=== PATIENT | male | born 1940 | race African-American/Black ===

== ENCOUNTER 2017-12-07 01:25 | Inpatient (IN) | payer MEDICARE, MEDICAID ==
[~2017-12-07] VITALS: Ht 162.6 cm; Wt 85.7 kg
[~2017-12-07 01:25] MED LIST: AMLO10TA80 PO; DIGO250T81 PO; DONE5TAB33 PO; ISOS60TA4 PO; MEMA1CAP PO; TAMS0.4C31 PO
[2017-12-07] MEDS ORDERED: METHYLPREDNISOLONE SOD SUCC 125 MG/2 ML VIAL IV STA (01:32)
[2017-12-07] MEDS ORDERED: IPRATROPIUM BROMIDE (0.02%) 0.5MG/2.5ML NEB HHN STA (01:32)
[2017-12-07] MEDS ORDERED: ALBUTEROL (0.083%) 2.5MG/3ML NEB HHN STA (01:32)
[2017-12-07] MEDS ORDERED: FURO40TA5 PO (01:38)
[2017-12-07] MEDS ORDERED: SACU1TAB7 PO (01:39)
[2017-12-07 02:26] LABS: BASOPHILS % 0.1 % (0.0-2.0); EOSINOPHILS % 0.2 % (0.0-5.0); HEMATOCRIT. 44.8 % (42.0-52.0); HEMOGLOBIN. 15.2 g/dL (14.0-18.0); LYMPHOCYTES % 8.7 % (20.0-50.0); MEAN CORPUSCULAR HEMOGLOBIN 30.2 pg (28.0-32.0); MEAN PLATELET VOLUME 8.9 fl (7.4-10.4); MONOCYTES % 7.5 % (2.0-8.0); NEUTROPHILS % 83.5 % (40.0-76.0); PLATELET 145 x1000/uL (130-400); RED BLOOD CELL COUNT 5.04 mill/uL (4.7-6.1); RED CELL DISTRIBUTION WIDTH 14.2 % (11.6-14.6)
[2017-12-07 02:41] LABS: INR 1.1; PROTHROMBIN TIME 11.7 sec (9.4-11.6)
[2017-12-07 02:43] LABS: CHLORIDE 104 mEq/L (98-107)
[2017-12-07] MEDS ORDERED: FUROSEMIDE 100MG/10ML VIAL IVP SCH (03:15)
[2017-12-07] MEDS ORDERED: ASPIRIN 81MG TABLET PO SCH (03:15)
[2017-12-07 03:45] LABS: CLARITY URINE CLOUDY (CLEAR); COLOR URINE YELLOW (YELLOW); KETONES URINE NEGATIVE (NEGATIVE); LEUKOCYTE ESTERASE URINE NEGATIVE (NEGATIVE); NITRITE URINE NEGATIVE (NEGATIVE); OCCULT BLOOD URINE NEGATIVE (NEGATIVE); PH URINE 8.5 (4.5-8.0); PROTEIN URINE NEGATIVE (NEGATIVE); SPECIFIC GRAVITY URINE 1.018 (1.005-1.030)
[2017-12-07] MEDS ORDERED: ENOXAPARIN 40MG/0.4ML SYR SUBCUT SCH (10:30)
[2017-12-07] MEDS ORDERED: LORAZEPAM 0.5MG TABLET PO PRN (10:30)
[2017-12-07] MEDS ORDERED: IPRATROPIUM/ALBUTEROL 0.5-3(2.5)MG/3ML NEB INH PRN (10:30)
[2017-12-07] MEDS ORDERED: ACETAMINOPHEN 325MG TABLET PO PRN (10:30)
[2017-12-07] MEDS ORDERED: NITROGLYCERIN 0.4MG TABLET SL SL PRN (10:30)
[2017-12-07] MEDS ORDERED: GUAIFENESIN 200MG/10ML SUGAR FREE UDC PO PRN (10:30)
[2017-12-07] MEDS ORDERED: ZOLPIDEM TARTRATE 5MG TABLET PO PRN (10:30)
[2017-12-07] MEDS ORDERED: DIPHENHYDRAMINE 50MG/ML VIAL IV PRN (10:30)
[2017-12-07] MEDS ORDERED: GUAIFENESIN/DM 600MG/30MG ER TAB 12HR PO SCH (10:30)
[2017-12-07] MEDS ORDERED: MAGNESIUM/ALUMINUM HYDROXIDE/SIMETHICONE 30ML UDC PO PRN (10:30)
[2017-12-07] MEDS ORDERED: LEVOFLOXACIN 500MG PREMIX 100 ML IV SCH (10:30)
[2017-12-07] MEDS ORDERED: KETOROLAC 15MG/ML VIAL IV PRN (10:30)
[2017-12-07] MEDS ORDERED: DOCUSATE SODIUM 100MG CAPSULE PO PRN (10:30)
[2017-12-07] MEDS ORDERED: ONDANSETRON HCL 4MG/2ML VIAL IV PRN (10:30)
[2017-12-07] MEDS ORDERED: NA PHOS,M-B/NA PHOS,DI-BA ENEMA 118ML PR PRN (10:30)
[2017-12-07] MEDS ORDERED: CLONIDINE 0.1MG TABLET PO PRN (10:30)
[2017-12-07] MEDS ORDERED: LEVOFLOXACIN 500MG PREMIX 100 ML IV NR (11:00)
[2017-12-07] MEDS ORDERED: ENOXAPARIN 40MG/0.4ML SYR SUBCUT NR (11:30)
[2017-12-07] MEDS ORDERED: GUAIFENESIN/DM 600MG/30MG ER TAB 12HR PO NR (11:30)
[2017-12-07 22:40] VITALS: BP 115/56
[2017-12-07 23:19] LABS: CREATINE KINASE MB FRACTION 3.5 ng/mL (0.5-3.6)
[2017-12-08] MEDS ORDERED: MULT-1146 PO
[2017-12-08 00:23] VITALS: BP 115/68
[2017-12-08 04:00] VITALS: BP 117/76
[2017-12-08 07:54] VITALS: BP 105/72
[2017-12-08] MEDS: GUAIFENESIN/DM 600MG/30MG ER TAB 12HR PO SCH ×2 (10:59→20:56)
[2017-12-08] MEDS: ENOXAPARIN 40MG/0.4ML SYR SUBCUT SCH (10:59)
[2017-12-08] MEDS: FUROSEMIDE 40MG/4ML VIAL IVP SCH ×2 (11:00→20:55)
[2017-12-08] MEDS: ASPIRIN 325MG EC TABLET PO SCH (11:00)
[2017-12-08] MEDS: SPIRONOLACTONE 25MG TABLET PO SCH ×2 (11:00→20:56)
[2017-12-08] MEDS: FAMOTIDINE 20MG/2ML VIAL IV SCH ×2 (11:00→20:55)
[2017-12-08] MEDS: LEVOFLOXACIN 500MG PREMIX 100 ML IV SCH (13:58)
[2017-12-08 16:18] VITALS: BP 104/73
[2017-12-08 17:58] LABS: *AMPHETAMINES SCREEN URINE NEGATIVE (NEGATIVE); *BARBITURATES SCREEN URINE NEGATIVE (NEGATIVE); *BENZODIAZEPINES SCREEN URINE NEGATIVE (NEGATIVE); *COCAINE SCREEN URINE NEGATIVE (NEGATIVE); CANNABINOID URINE SCREEN NEGATIVE (NEGATIVE); METHADONE URINE SCREEN NEGATIVE (NEGATIVE); OPIATES URINE SCREEN PRESUMTIVE POSITIVE (NEGATIVE); PHENCYCLIDINE URINE SCREEN NEGATIVE (NEGATIVE)
[2017-12-08 20:00] VITALS: BP 111/60
[2017-12-09] MEDS: IPRATROPIUM/ALBUTEROL 0.5-3(2.5)MG/3ML NEB HHN SCH ×5 (00:59→20:34)
[2017-12-09] MEDS: BUDESONIDE 0.5MG/2ML NEB HHN SCH ×3 (01:07→20:33)
[2017-12-09 06:00] VITALS: BP 118/83
[2017-12-09 08:00] VITALS: BP 116/74
[2017-12-09] MEDS ORDERED: MEMANTINE HCL 10 MG PO SCH (09:15)
[2017-12-09] MEDS: SPIRONOLACTONE 25MG TABLET PO SCH ×2 (10:22→20:27)
[2017-12-09] MEDS: FAMOTIDINE 20MG/2ML VIAL IV SCH ×2 (10:22→20:20)
[2017-12-09] MEDS: FUROSEMIDE 40MG/4ML VIAL IVP SCH ×2 (10:22→20:20)
[2017-12-09] MEDS: ENOXAPARIN 40MG/0.4ML SYR SUBCUT SCH (10:23)
[2017-12-09] MEDS: GUAIFENESIN/DM 600MG/30MG ER TAB 12HR PO SCH ×2 (10:23→20:21)
[2017-12-09] MEDS: ASPIRIN 325MG EC TABLET PO SCH (10:24)
[2017-12-09 12:00] VITALS: BP 115/76
[2017-12-09] MEDS: LEVOFLOXACIN 500MG PREMIX 100 ML IV SCH (14:08)
[2017-12-09] MEDS ORDERED: MEMA10TA2 PO (14:59)
[2017-12-09 16:00] VITALS: BP 111/75
[2017-12-09] MEDS ORDERED: DIGOXIN 250MCG TABLET PO SCH (18:00)
[2017-12-09 20:00] VITALS: BP 105/74
[2017-12-10] VITALS: BP 138/79
[2017-12-10] MEDS: IPRATROPIUM/ALBUTEROL 0.5-3(2.5)MG/3ML NEB HHN SCH ×3 (00:57→08:13)
[2017-12-10 04:00] VITALS: BP 111/76
[2017-12-10 07:53] VITALS: BP 122/78
[2017-12-10] MEDS: BUDESONIDE 0.5MG/2ML NEB HHN SCH (08:13)
[2017-12-10] MEDS: FUROSEMIDE 40MG/4ML VIAL IVP SCH (08:59)
[2017-12-10] MEDS: ENOXAPARIN 40MG/0.4ML SYR SUBCUT SCH (08:59)
[2017-12-10] MEDS: ASPIRIN 325MG EC TABLET PO SCH (09:00)
[2017-12-10] MEDS: GUAIFENESIN/DM 600MG/30MG ER TAB 12HR PO SCH (09:00)
[2017-12-10] MEDS ORDERED: MEMANTINE HCL 10MG TABLET PO SCH (09:00)
[2017-12-10] MEDS: FAMOTIDINE 20MG/2ML VIAL IV SCH (09:00)
[2017-12-10] MEDS: SPIRONOLACTONE 25MG TABLET PO SCH (09:00)
[2017-12-10 11:21] VITALS: BP 122/78
== END 2017-12-10 13:20 | disposition home or self-care (01) | DRG 133 ==
LOC: ER 01:25 → 8WST 03:24 → EDBEDREQ 03:26 → EDBEDREQTM 03:26 → SUPCPDRO 10:05 → EDBEDREQ 11:28 → EDBEDREQSVC 11:48 → ENRESERV 21:07
PROVIDERS: ADMIT Internal Medicine; ATTEND Internal Medicine
PROC: 5A09357 Assistance with Respiratory Ventilation, Less than 24 Consecutive Hours, Continuous Positive Airway Pressure (ICD-10-PCS; principal; 2017-12-07)
PROC: 5A09357 Assistance with Respiratory Ventilation, Less than 24 Consecutive Hours, Continuous Positive Airway Pressure (ICD-10-PCS; 2017-12-09)
DX: J96.00 Acute respiratory failure, unspecified whether with hypoxia or hypercapnia (principal); I50.43 Acute on chronic combined systolic (congestive) and diastolic (congestive) heart failure; E44.1 Mild protein-calorie malnutrition; J44.1 Chronic obstructive pulmonary disease with (acute) exacerbation; I11.0 Hypertensive heart disease with heart failure; F03.90 Unspecified dementia, unspecified severity, without behavioral disturbance, psychotic disturbance, mood disturbance, and anxiety; Z96.659 Presence of unspecified artificial knee joint; Z60.2 Problems related to living alone; N40.0 Benign prostatic hyperplasia without lower urinary tract symptoms; Z90.49 Acquired absence of other specified parts of digestive tract; Z95.810 Presence of automatic (implantable) cardiac defibrillator; Z87.01 Personal history of pneumonia (recurrent); Z79.899 Other long term (current) drug therapy; Z68.32 Body mass index [BMI] 32.0-32.9, adult
CPT/HCPCS: 36415; 71045; 80053; 80061; 80162; 80305; 81003; 82550; 82553; 83036; 83605; 83880; 84484; 85025; 85610; 87040; 87086; 93306; 93970; 94640; 94660; 96365; 96375; 97162; 97166; 99291; J1200; J1650; J1940; J1956; J2930; J3490; J7050; J7611; J7620; J7626

== ENCOUNTER 2019-07-14 13:45 | Inpatient (IN) | payer MEDICARE, MEDICAID ==
[~2019-07-14] VITALS: Ht 167.6 cm; Wt 74.4 kg
[~2019-07-14 13:45] MED LIST changes: -DONE5TAB33 PO; +FURO40TA5 PO; +MEMA10TA2 PO; -MEMA1CAP PO; +MULT-1146 PO; +SACU1TAB7 PO; -TAMS0.4C31 PO
[2019-07-14] MEDS ORDERED: LEVOFLOXACIN 750MG PREMIX 150 ML IV ONE (15:15)
[2019-07-14] MEDS ORDERED: SODIUM CHLORIDE 0.9% 1000ML BAG (SEPSIS BOLUS) IV ONE (15:15)
[2019-07-14 15:42] LABS: BASOPHILS % 0.4 % (0.0-2.0); HEMATOCRIT. 45.6 % (42.0-52.0); LYMPHOCYTES % 7.2 % (20.0-50.0); MEAN CORPUSCULAR HEMOGLOBIN 31.2 pg (28.0-32.0); MEAN CORPUSCULAR VOLUME 94.6 fL (80.0-94.0); MEAN PLATELET VOLUME 9.2 fl (7.4-10.4); MONOCYTES % 5.2 % (2.0-8.0); NEUTROPHILS % 87.2 % (40.0-76.0); PLATELET 102 x1000/uL (130-400); RED BLOOD CELL COUNT 4.82 mill/uL (4.7-6.1)
[2019-07-14 15:49] LABS: CHLORIDE 107 mEq/L (98-107)
[2019-07-14 15:50] LABS: INR 1.1; PARTIAL THROMBOPLASTIN TIME 27.2 sec (23.4-31.0); PROTHROMBIN TIME 11.2 sec (9.6-11.0)
[2019-07-14 16:11] LABS: DIGOXIN 0.1 ng/mL (0.9-2.0)
[2019-07-14] MEDS ORDERED: FUROSEMIDE 40MG/4ML VIAL IV ONE (16:30)
[2019-07-14] MEDS ORDERED: ASPIRIN 81MG TABLET PO ONE (16:30)
[2019-07-14 18:00] LABS: CLARITY URINE CLEAR (CLEAR); COLOR URINE DARK YELLOW (YELLOW); KETONES URINE NEGATIVE (NEGATIVE); LEUKOCYTE ESTERASE URINE TRACE (NEGATIVE); NITRITE URINE NEGATIVE (NEGATIVE); OCCULT BLOOD URINE 3+ (NEGATIVE); PH URINE 5.5 (4.5-8.0); PROTEIN URINE 2+ (NEGATIVE); SPECIFIC GRAVITY URINE 1.027 (1.005-1.030)
[2019-07-14 18:58] VITALS: BP 124/79
[2019-07-14 20:00] VITALS: BP 121/77
[2019-07-15] VITALS: BP 103/63
[2019-07-15] MEDS ORDERED: VANCOMYCIN 1 G PREMIX 200 ML IV NR
[2019-07-15] MEDS: PIPERACILLIN/TAZOBACTAM 3.375 G in DEXT 5% WATER 100 ML IV SCH ×5 (00:16→22:39)
[2019-07-15] MEDS: SACUBITRIL/VALSARTAN 49MG/51MG TABLET PO SCH ×3 (00:32→21:14)
[2019-07-15 04:00] VITALS: BP 115/71
[2019-07-15] MEDS: VANCOMYCIN 750 MG PREMIX 150 ML IV SCH ×2 (06:23→16:56)
[2019-07-15] MEDS ORDERED: FUROSEMIDE 40MG TABLET PO SCH (07:15)
[2019-07-15 08:00] VITALS: BP 105/66
[2019-07-15] MEDS: ASPIRIN 325MG TABLET PO SCH (09:00)
[2019-07-15] MEDS: MEMANTINE HCL 10MG TABLET PO SCH (09:00)
[2019-07-15] MEDS: ENOXAPARIN 40MG/0.4ML SYR SUBCUT SCH (09:55)
[2019-07-15] MEDS: CARVEDILOL 3.125 MG TABLET PO SCH ×2 (09:56→21:00)
[2019-07-15 12:00] VITALS: BP 97/63
[2019-07-15] MEDS: BUMETANIDE 1MG/4ML VIAL IV SCH (13:26)
[2019-07-15] MEDS: ACETYLCYSTEINE 100MG/ML 10% VIAL 4ML INH SCH (14:16)
[2019-07-15 14:41] LABS: CHLORIDE 107 mEq/L (98-107)
[2019-07-15 14:59] LABS: T4 FREE 1.77 ng/dL (0.76-1.46)
[2019-07-15 15:01] LABS: FOLIC ACID (FOLATE) SERUM >20 ng/mL ng/mL (>5.38)
[2019-07-15 15:12] LABS: VITAMIN B12 SERUM 1328 pg/mL (211-911)
[2019-07-15 16:00] VITALS: BP 114/78
[2019-07-15] MEDS: AMLODIPINE 5MG TABLET PO SCH (16:57)
[2019-07-15] MEDS: POTASSIUM CHLORIDE 20MEQ TABLET SR PO SCH (16:57)
[2019-07-15 18:48] LABS: BASOPHILS % 0.1 % (0.0-2.0); HEMATOCRIT. 42.6 % (42.0-52.0); HEMOGLOBIN. 14.6 g/dL (14.0-18.0); LYMPHOCYTES % 12.2 % (20.0-50.0); MEAN CORPUSCULAR HEMOGLOBIN 32.2 pg (28.0-32.0); MEAN PLATELET VOLUME 9.3 fl (7.4-10.4); MONOCYTES % 7.8 % (2.0-8.0); NEUTROPHILS % 79.9 % (40.0-76.0); PLATELET 97 x1000/uL (130-400); RED BLOOD CELL COUNT 4.53 mill/uL (4.7-6.1); RED CELL DISTRIBUTION WIDTH 15.9 % (11.6-14.6)
[2019-07-15 20:00] VITALS: BP 106/68
[2019-07-15] MEDS: IPRATROPIUM/ALBUTEROL 0.5-3(2.5)MG/3ML NEB HHN SCH (21:05)
[2019-07-15] MEDS: LORAZEPAM 2MG/ML CPJ IV PRN (23:38)
[2019-07-16] VITALS (7 sets, daily range): BP systolic 98–119; BP diastolic 64–111
[2019-07-16] MEDS: IPRATROPIUM/ALBUTEROL 0.5-3(2.5)MG/3ML NEB HHN SCH ×4 (01:21→20:42)
[2019-07-16] MEDS: PIPERACILLIN/TAZOBACTAM 3.375 G in DEXT 5% WATER 100 ML IV SCH ×4 (05:27→22:43)
[2019-07-16 06:28] LABS: BASOPHILS % 0.1 % (0.0-2.0); HEMATOCRIT. 40.4 % (42.0-52.0); HEMOGLOBIN. 13.8 g/dL (14.0-18.0); LYMPHOCYTES % 13.1 % (20.0-50.0); MEAN CORPUSCULAR VOLUME 93.8 fL (80.0-94.0); MEAN PLATELET VOLUME 9.6 fl (7.4-10.4); MONOCYTES % 7.7 % (2.0-8.0); NEUTROPHILS % 79.1 % (40.0-76.0); PLATELET 93 x1000/uL (130-400); RED CELL DISTRIBUTION WIDTH 15.4 % (11.6-14.6)
[2019-07-16 06:33] LABS: CHLORIDE 105 mEq/L (98-107)
[2019-07-16] MEDS: VANCOMYCIN 750 MG PREMIX 150 ML IV SCH (06:42)
[2019-07-16] MEDS: ENOXAPARIN 40MG/0.4ML SYR SUBCUT SCH (09:00)
[2019-07-16] MEDS: CARVEDILOL 3.125 MG TABLET PO SCH ×2 (09:00→21:34)
[2019-07-16] MEDS: AMLODIPINE 5MG TABLET PO SCH (09:00)
[2019-07-16] MEDS: POTASSIUM CHLORIDE 20MEQ TABLET SR PO SCH (10:48)
[2019-07-16] MEDS: BUMETANIDE 1MG/4ML VIAL IV SCH ×3 (10:48→18:49)
[2019-07-16] MEDS: MEMANTINE HCL 10MG TABLET PO SCH (10:48)
[2019-07-16] MEDS: ASPIRIN 325MG TABLET PO SCH (10:55)
[2019-07-16] MEDS: SACUBITRIL/VALSARTAN 49MG/51MG TABLET PO SCH ×2 (10:55→22:42)
[2019-07-16] MEDS ORDERED: POTASSIUM CHLORIDE 20MEQ TABLET SR PO SCH (12:45)
[2019-07-16] MEDS ORDERED: KCL 20MEQ/100ML PREMIX 100 ML IV NR (13:15)
[2019-07-16] MEDS: VANCOMYCIN 1 G PREMIX 200 ML IV SCH (16:21)
[2019-07-16] MEDS: LORAZEPAM 2MG/ML CPJ IV PRN (21:34)
[2019-07-17] VITALS: BP 119/71
[2019-07-17] MEDS: SACUBITRIL/VALSARTAN 49MG/51MG TABLET PO SCH ×3 (00:45→22:34)
[2019-07-17] MEDS: ACETYLCYSTEINE 100MG/ML 10% VIAL 4ML INH SCH ×2 (01:57→16:11)
[2019-07-17] MEDS: IPRATROPIUM/ALBUTEROL 0.5-3(2.5)MG/3ML NEB HHN SCH ×5 (01:58→21:25)
[2019-07-17 04:00] VITALS: BP 151/79
[2019-07-17] MEDS: VANCOMYCIN 1 G PREMIX 200 ML IV SCH ×2 (04:13→18:56)
[2019-07-17] MEDS: PIPERACILLIN/TAZOBACTAM 3.375 G in DEXT 5% WATER 100 ML IV SCH (05:23)
[2019-07-17] MEDS: BUMETANIDE 1MG/4ML VIAL IV SCH ×2 (05:28→18:57)
[2019-07-17 07:30] LABS: BASOPHILS % 0.1 % (0.0-2.0); HEMATOCRIT. 39.6 % (42.0-52.0); HEMOGLOBIN. 13.5 g/dL (14.0-18.0); LYMPHOCYTES % 8.4 % (20.0-50.0); MEAN CORPUSCULAR HEMOGLOBIN 32.2 pg (28.0-32.0); MEAN CORPUSCULAR VOLUME 94.3 fL (80.0-94.0); MEAN PLATELET VOLUME 9.6 fl (7.4-10.4); MONOCYTES % 5.6 % (2.0-8.0); NEUTROPHILS % 85.9 % (40.0-76.0); PLATELET 89 x1000/uL (130-400); RED CELL DISTRIBUTION WIDTH 15.5 % (11.6-14.6)
[2019-07-17 08:26] LABS: CHLORIDE 107 mEq/L (98-107)
[2019-07-17] MEDS: AMLODIPINE 5MG TABLET PO SCH (09:00)
[2019-07-17] MEDS: CARVEDILOL 3.125 MG TABLET PO SCH ×2 (09:00→22:00)
[2019-07-17] MEDS: MEMANTINE HCL 10MG TABLET PO SCH (11:45)
[2019-07-17] MEDS: ASPIRIN 325MG TABLET PO SCH (11:45)
[2019-07-17] MEDS: ENOXAPARIN 40MG/0.4ML SYR SUBCUT SCH (11:46)
[2019-07-17] MEDS: POTASSIUM CHLORIDE 20MEQ TABLET SR PO SCH ×2 (13:49→17:00)
[2019-07-17] MEDS: CEFEPIME 1,000 MG in DEXTROSE 5% WATER 50 ML IV SCH (18:56)
[2019-07-17 20:00] VITALS: BP 111/85
[2019-07-17] MEDS: LORAZEPAM 2MG/ML CPJ IV PRN (20:25)
[2019-07-18] VITALS: BP 115/79
[2019-07-18] MEDS: CEFEPIME 1,000 MG in DEXTROSE 5% WATER 50 ML IV SCH ×3 (00:44→14:15)
[2019-07-18] MEDS: IPRATROPIUM/ALBUTEROL 0.5-3(2.5)MG/3ML NEB HHN SCH ×4 (01:57→20:46)
[2019-07-18 04:00] VITALS: BP 116/67
[2019-07-18] MEDS: VANCOMYCIN 1 G PREMIX 200 ML IV SCH ×2 (04:07→17:14)
[2019-07-18] MEDS: BUMETANIDE 1MG/4ML VIAL IV SCH ×2 (06:58→17:14)
[2019-07-18 07:08] LABS: CHLORIDE 106 mEq/L (98-107)
[2019-07-18 07:20] LABS: HEMATOCRIT. 39.7 % (42.0-52.0); HEMOGLOBIN. 13.7 g/dL (14.0-18.0); MEAN CORPUSCULAR HEMOGLOBIN 31.8 pg (28.0-32.0); MEAN CORPUSCULAR VOLUME 92.4 fL (80.0-94.0); MEAN PLATELET VOLUME 9.4 fl (7.4-10.4); PLATELET 111 x1000/uL (130-400); RED CELL DISTRIBUTION WIDTH 15.3 % (11.6-14.6)
[2019-07-18] MEDS: ACETYLCYSTEINE 100MG/ML 10% VIAL 4ML INH SCH ×2 (07:39→20:45)
[2019-07-18 08:00] VITALS: BP 114/76
[2019-07-18] MEDS: ENOXAPARIN 40MG/0.4ML SYR SUBCUT SCH ×2 (09:00→14:15)
[2019-07-18] MEDS: AMLODIPINE 5MG TABLET PO SCH (09:57)
[2019-07-18] MEDS: POTASSIUM CHLORIDE 20MEQ TABLET SR PO SCH ×2 (09:57→17:14)
[2019-07-18] MEDS: CARVEDILOL 3.125 MG TABLET PO SCH ×2 (09:57→21:11)
[2019-07-18] MEDS: MEMANTINE HCL 10MG TABLET PO SCH (09:57)
[2019-07-18] MEDS: LORAZEPAM 2MG/ML CPJ IV PRN (09:58)
[2019-07-18] MEDS: SACUBITRIL/VALSARTAN 49MG/51MG TABLET PO SCH ×2 (09:58→21:12)
[2019-07-18] MEDS ORDERED: BUMETANIDE 1MG/4ML VIAL IV NR (11:03)
[2019-07-18] MEDS: RISPERIDONE 0.5MG TABLET PO SCH (13:30)
[2019-07-18] MEDS ORDERED: LORAZEPAM 2MG/ML CPJ IV PRN (13:30)
[2019-07-18] MEDS: ASPIRIN 325MG TABLET PO SCH (14:15)
[2019-07-18] MEDS: METHYLPREDNISOLONE SOD SUCC 40 MG/ML VIAL IV SCH ×2 (14:16→21:11)
[2019-07-18 16:00] VITALS: BP 105/69
[2019-07-18 17:35] LABS: PLATELET ESTIMATE SLIGHTLY DECREASED
[2019-07-18 20:00] VITALS: BP 129/80
[2019-07-19] VITALS: BP 119/55
[2019-07-19] MEDS: CEFEPIME 1,000 MG in DEXTROSE 5% WATER 50 ML IV SCH ×2 (00:43→13:38)
[2019-07-19] MEDS: IPRATROPIUM/ALBUTEROL 0.5-3(2.5)MG/3ML NEB HHN SCH ×4 (02:53→21:17)
[2019-07-19 04:00] VITALS: BP 117/81
[2019-07-19] MEDS: VANCOMYCIN 1 G PREMIX 200 ML IV SCH ×2 (04:09→16:35)
[2019-07-19] MEDS: BUMETANIDE 1MG/4ML VIAL IV SCH ×2 (06:32→16:35)
[2019-07-19] MEDS: METHYLPREDNISOLONE SOD SUCC 40 MG/ML VIAL IV SCH ×3 (06:32→22:27)
[2019-07-19 07:34] LABS: HEMATOCRIT. 40.8 % (42.0-52.0); HEMOGLOBIN. 13.9 g/dL (14.0-18.0); MEAN CORPUSCULAR HEMOGLOBIN 31.7 pg (28.0-32.0); MEAN CORPUSCULAR VOLUME 93.1 fL (80.0-94.0); MEAN PLATELET VOLUME 9.5 fl (7.4-10.4); PLATELET 140 x1000/uL (130-400); RED BLOOD CELL COUNT 4.38 mill/uL (4.7-6.1); RED CELL DISTRIBUTION WIDTH 15.1 % (11.6-14.6)
[2019-07-19 07:50] LABS: CHLORIDE 105 mEq/L (98-107)
[2019-07-19 08:00] VITALS: BP 109/67
[2019-07-19] MEDS: ACETYLCYSTEINE 100MG/ML 10% VIAL 4ML INH SCH ×2 (08:47→14:13)
[2019-07-19] MEDS: CARVEDILOL 3.125 MG TABLET PO SCH ×2 (09:00→21:00)
[2019-07-19] MEDS: ASPIRIN 325MG TABLET PO SCH (09:00)
[2019-07-19] MEDS: AMLODIPINE 5MG TABLET PO SCH (09:00)
[2019-07-19] MEDS: RISPERIDONE 0.5MG TABLET PO SCH (09:15)
[2019-07-19] MEDS: POTASSIUM CHLORIDE 20MEQ TABLET SR PO SCH ×2 (09:15→16:35)
[2019-07-19] MEDS: MEMANTINE HCL 10MG TABLET PO SCH (09:15)
[2019-07-19] MEDS: SACUBITRIL/VALSARTAN 49MG/51MG TABLET PO SCH ×2 (09:16→22:25)
[2019-07-19] MEDS: ENOXAPARIN 40MG/0.4ML SYR SUBCUT SCH (09:16)
[2019-07-19 11:41] LABS: PLATELET ESTIMATE NORMAL
[2019-07-19 12:00] VITALS: BP 101/82
[2019-07-19 20:00] VITALS: BP 106/66
[2019-07-20] VITALS: BP 102/59
[2019-07-20] MEDS: CEFEPIME 1,000 MG in DEXTROSE 5% WATER 50 ML IV SCH ×2 (00:57→14:14)
[2019-07-20] MEDS: IPRATROPIUM/ALBUTEROL 0.5-3(2.5)MG/3ML NEB HHN SCH ×3 (01:45→13:48)
[2019-07-20] MEDS: ACETYLCYSTEINE 100MG/ML 10% VIAL 4ML INH SCH ×3 (01:45→13:47)
[2019-07-20 04:00] VITALS: BP 102/64
[2019-07-20] MEDS: VANCOMYCIN 1 G PREMIX 200 ML IV SCH ×2 (04:03→16:39)
[2019-07-20] MEDS: BUMETANIDE 1MG/4ML VIAL IV SCH ×2 (06:52→18:56)
[2019-07-20] MEDS: METHYLPREDNISOLONE SOD SUCC 40 MG/ML VIAL IV SCH ×3 (06:52→21:22)
[2019-07-20 07:21] LABS: HEMATOCRIT. 40.2 % (42.0-52.0); HEMOGLOBIN. 13.5 g/dL (14.0-18.0); MEAN CORPUSCULAR HEMOGLOBIN 30.9 pg (28.0-32.0); MEAN CORPUSCULAR VOLUME 92.4 fL (80.0-94.0); MEAN PLATELET VOLUME 9.3 fl (7.4-10.4); PLATELET 147 x1000/uL (130-400); RED BLOOD CELL COUNT 4.36 mill/uL (4.7-6.1); RED CELL DISTRIBUTION WIDTH 15.4 % (11.6-14.6)
[2019-07-20 07:27] LABS: CHLORIDE 104 mEq/L (98-107)
[2019-07-20 08:00] VITALS: BP 109/67
[2019-07-20] MEDS: CARVEDILOL 3.125 MG TABLET PO SCH ×2 (09:00→21:00)
[2019-07-20] MEDS: AMLODIPINE 5MG TABLET PO SCH (09:00)
[2019-07-20] MEDS: RISPERIDONE 0.5MG TABLET PO SCH (09:15)
[2019-07-20] MEDS: ASPIRIN 325MG TABLET PO SCH (09:15)
[2019-07-20] MEDS: SACUBITRIL/VALSARTAN 49MG/51MG TABLET PO SCH ×2 (09:15→21:23)
[2019-07-20] MEDS: MEMANTINE HCL 10MG TABLET PO SCH (09:15)
[2019-07-20] MEDS: ENOXAPARIN 40MG/0.4ML SYR SUBCUT SCH (09:16)
[2019-07-20] MEDS: POTASSIUM CHLORIDE 20MEQ TABLET SR PO SCH ×2 (09:16→18:56)
[2019-07-20 11:19] LABS: PLATELET ESTIMATE NORMAL
[2019-07-20 12:00] VITALS: BP 89/53
[2019-07-20 16:00] VITALS: BP 93/57
[2019-07-20 20:00] VITALS: BP_SYST 101; BP_SYST 102; BP_SYST 107; BP_DIAS 58; BP_DIAS 60; BP_DIAS 64
[2019-07-20] MEDS: IPRATROPIUM/ALBUTEROL 0.5-3(2.5)MG/3ML NEB HHN PRN (21:05)
[2019-07-20] MEDS ORDERED: LORAZEPAM 2MG/ML CPJ IV PRN (21:45)
[2019-07-20] MEDS ORDERED: HALOPERIDOL LACTATE 5MG/ML VIAL IM PRN (21:45)
[2019-07-21] VITALS: BP 98/53
[2019-07-21] MEDS: ACETYLCYSTEINE 100MG/ML 10% VIAL 4ML INH SCH ×2 (01:00→10:48)
[2019-07-21] MEDS: IPRATROPIUM/ALBUTEROL 0.5-3(2.5)MG/3ML NEB HHN PRN (01:33)
[2019-07-21] MEDS: CEFEPIME 1,000 MG in DEXTROSE 5% WATER 50 ML IV SCH ×2 (01:41→15:28)
[2019-07-21] MEDS: VANCOMYCIN 1 G PREMIX 200 ML IV SCH ×2 (03:22→17:49)
[2019-07-21 04:00] VITALS: BP 101/57
[2019-07-21] MEDS: METHYLPREDNISOLONE SOD SUCC 40 MG/ML VIAL IV SCH ×3 (06:23→21:29)
[2019-07-21] MEDS: BUMETANIDE 1MG/4ML VIAL IV SCH ×2 (06:23→17:49)
[2019-07-21 06:36] LABS: HEMATOCRIT. 40.9 % (42.0-52.0); HEMOGLOBIN. 13.9 g/dL (14.0-18.0); MEAN CORPUSCULAR HEMOGLOBIN 31.7 pg (28.0-32.0); MEAN CORPUSCULAR VOLUME 93.2 fL (80.0-94.0); PLATELET 133 x1000/uL (130-400); RED BLOOD CELL COUNT 4.39 mill/uL (4.7-6.1); RED CELL DISTRIBUTION WIDTH 15.3 % (11.6-14.6)
[2019-07-21 06:50] LABS: CHLORIDE 104 mEq/L (98-107)
[2019-07-21 08:00] VITALS: BP 105/61
[2019-07-21] MEDS: AMLODIPINE 5MG TABLET PO SCH (08:30)
[2019-07-21] MEDS: CARVEDILOL 3.125 MG TABLET PO SCH (08:30)
[2019-07-21] MEDS: SACUBITRIL/VALSARTAN 49MG/51MG TABLET PO SCH ×2 (08:36→21:29)
[2019-07-21] MEDS: ENOXAPARIN 40MG/0.4ML SYR SUBCUT SCH (08:36)
[2019-07-21] MEDS: RISPERIDONE 0.5MG TABLET PO SCH ×3 (08:36→17:00)
[2019-07-21] MEDS: ASPIRIN 325MG TABLET PO SCH (08:36)
[2019-07-21] MEDS: POTASSIUM CHLORIDE 20MEQ TABLET SR PO SCH ×2 (08:37→17:49)
[2019-07-21] MEDS: IPRATROPIUM/ALBUTEROL 0.5-3(2.5)MG/3ML NEB HHN SCH ×3 (08:43→20:38)
[2019-07-21] MEDS: MEMANTINE HCL 10MG TABLET PO SCH (09:31)
[2019-07-21 10:09] LABS: PLATELET ESTIMATE NORMAL
[2019-07-21 12:00] VITALS: BP 113/62
[2019-07-21 16:00] VITALS: BP 106/54
[2019-07-21 20:00] VITALS: BP 106/64
[2019-07-22] VITALS: BP 103/63
[2019-07-22] MEDS: IPRATROPIUM/ALBUTEROL 0.5-3(2.5)MG/3ML NEB HHN SCH ×4 (01:00→20:10)
[2019-07-22] MEDS: CEFEPIME 1,000 MG in DEXTROSE 5% WATER 50 ML IV SCH ×2 (01:32→14:42)
[2019-07-22] MEDS: VANCOMYCIN 1 G PREMIX 200 ML IV SCH ×2 (03:53→18:21)
[2019-07-22 04:00] VITALS: BP 104/55
[2019-07-22] MEDS: METHYLPREDNISOLONE SOD SUCC 40 MG/ML VIAL IV SCH (06:00)
[2019-07-22] MEDS: BUMETANIDE 1MG/4ML VIAL IV SCH ×3 (06:00→18:20)
[2019-07-22 07:06] LABS: CHLORIDE 105 mEq/L (98-107)
[2019-07-22 07:07] LABS: HEMATOCRIT. 39.7 % (42.0-52.0); HEMOGLOBIN. 13.4 g/dL (14.0-18.0); MEAN CORPUSCULAR HEMOGLOBIN 31.6 pg (28.0-32.0); MEAN CORPUSCULAR VOLUME 93.6 fL (80.0-94.0); MEAN PLATELET VOLUME 8.9 fl (7.4-10.4); PLATELET 135 x1000/uL (130-400); RED BLOOD CELL COUNT 4.24 mill/uL (4.7-6.1); RED CELL DISTRIBUTION WIDTH 15.1 % (11.6-14.6)
[2019-07-22 08:00] VITALS: BP 121/67
[2019-07-22 09:08] LABS: PLATELET ESTIMATE NORMAL
[2019-07-22] MEDS: AMLODIPINE 5MG TABLET PO SCH (09:47)
[2019-07-22] MEDS: MEMANTINE HCL 10MG TABLET PO SCH (09:48)
[2019-07-22] MEDS: ENOXAPARIN 40MG/0.4ML SYR SUBCUT SCH (09:48)
[2019-07-22] MEDS: ASPIRIN 325MG TABLET PO SCH (09:48)
[2019-07-22] MEDS: RISPERIDONE 0.5MG TABLET PO SCH ×2 (09:49→18:21)
[2019-07-22] MEDS: POTASSIUM CHLORIDE 20MEQ TABLET SR PO SCH ×3 (09:58→18:21)
[2019-07-22] MEDS: ACETYLCYSTEINE 100MG/ML 10% VIAL 4ML INH SCH (10:48)
[2019-07-22] MEDS: SACUBITRIL/VALSARTAN 49MG/51MG TABLET PO SCH ×2 (11:26→21:00)
[2019-07-22] MEDS ORDERED: BUMETANIDE 1MG/4ML VIAL IV SCH (11:45)
[2019-07-22 12:00] VITALS: BP 107/68
[2019-07-22 16:00] VITALS: BP_SYST 107; BP_SYST 109; BP_DIAS 50; BP_DIAS 68
[2019-07-22 20:00] VITALS: BP 89/71
[2019-07-23] VITALS: BP 107/63
[2019-07-23] MEDS: IPRATROPIUM/ALBUTEROL 0.5-3(2.5)MG/3ML NEB HHN SCH ×6 (00:02→21:28)
[2019-07-23] MEDS: ACETYLCYSTEINE 100MG/ML 10% VIAL 4ML INH SCH ×3 (00:03→17:04)
[2019-07-23] MEDS: CEFEPIME 1,000 MG in DEXTROSE 5% WATER 50 ML IV SCH ×2 (01:26→15:58)
[2019-07-23 04:20] VITALS: BP 106/62
[2019-07-23] MEDS: VANCOMYCIN 1 G PREMIX 200 ML IV SCH ×2 (04:46→18:14)
[2019-07-23 07:05] LABS: CHLORIDE 107 mEq/L (98-107)
[2019-07-23 07:08] LABS: HEMATOCRIT. 41.1 % (42.0-52.0); HEMOGLOBIN. 14.1 g/dL (14.0-18.0); MEAN CORPUSCULAR HEMOGLOBIN 31.8 pg (28.0-32.0); MEAN CORPUSCULAR VOLUME 92.8 fL (80.0-94.0); MEAN PLATELET VOLUME 9.1 fl (7.4-10.4); PLATELET 121 x1000/uL (130-400); RED BLOOD CELL COUNT 4.43 mill/uL (4.7-6.1); RED CELL DISTRIBUTION WIDTH 14.9 % (11.6-14.6)
[2019-07-23 08:25] LABS: PLATELET ESTIMATE SLIGHTLY DECREASED
[2019-07-23] MEDS: POTASSIUM CHLORIDE 20MEQ TABLET SR PO SCH ×3 (09:00→17:00)
[2019-07-23] MEDS: RISPERIDONE 0.5MG TABLET PO SCH ×2 (09:46→18:14)
[2019-07-23] MEDS: BUMETANIDE 1MG/4ML VIAL IV SCH ×3 (09:46→18:14)
[2019-07-23] MEDS: MEMANTINE HCL 10MG TABLET PO SCH (09:46)
[2019-07-23] MEDS: ASPIRIN 325MG TABLET PO SCH (09:46)
[2019-07-23] MEDS: METHYLPREDNISOLONE SOD SUCC 40 MG/ML VIAL IV SCH (09:46)
[2019-07-23] MEDS: AMLODIPINE 5MG TABLET PO SCH (09:47)
[2019-07-23] MEDS: ENOXAPARIN 40MG/0.4ML SYR SUBCUT SCH (09:48)
[2019-07-23] MEDS: SACUBITRIL/VALSARTAN 49MG/51MG TABLET PO SCH ×2 (09:48→20:29)
[2019-07-23 12:00] VITALS: BP 114/66
[2019-07-23 16:00] VITALS: BP 106/60
[2019-07-23 20:00] VITALS: BP 123/72
[2019-07-24] VITALS (10 sets, daily range): BP systolic 91–127; BP diastolic 55–73
[2019-07-24] MEDS: ACETYLCYSTEINE 100MG/ML 10% VIAL 4ML INH SCH ×4 (01:17→23:36)
[2019-07-24] MEDS: IPRATROPIUM/ALBUTEROL 0.5-3(2.5)MG/3ML NEB HHN SCH ×7 (01:18→23:36)
[2019-07-24] MEDS: CEFEPIME 1,000 MG in DEXTROSE 5% WATER 50 ML IV SCH (02:04)
[2019-07-24] MEDS: VANCOMYCIN 1 G PREMIX 200 ML IV SCH (06:19)
[2019-07-24] MEDS: AMLODIPINE 5MG TABLET PO SCH (09:00)
[2019-07-24] MEDS: BUMETANIDE 1MG/4ML VIAL IV SCH ×2 (10:23→13:54)
[2019-07-24] MEDS: ASPIRIN 325MG TABLET PO SCH (10:24)
[2019-07-24] MEDS: METHYLPREDNISOLONE SOD SUCC 40 MG/ML VIAL IV SCH (10:24)
[2019-07-24] MEDS: RISPERIDONE 0.5MG TABLET PO SCH (10:24)
[2019-07-24] MEDS: SACUBITRIL/VALSARTAN 49MG/51MG TABLET PO SCH ×2 (10:25→21:30)
[2019-07-24] MEDS: MEMANTINE HCL 10MG TABLET PO SCH (10:25)
[2019-07-24] MEDS: ENOXAPARIN 40MG/0.4ML SYR SUBCUT SCH (10:26)
[2019-07-24] MEDS: POTASSIUM CHLORIDE 20MEQ TABLET SR PO SCH ×3 (10:27→17:51)
[2019-07-24 11:14] LABS: HEMATOCRIT. 43.3 % (42.0-52.0); HEMOGLOBIN. 14.6 g/dL (14.0-18.0); MEAN CORPUSCULAR HEMOGLOBIN 31.2 pg (28.0-32.0); MEAN CORPUSCULAR VOLUME 92.9 fL (80.0-94.0); MEAN PLATELET VOLUME 8.9 fl (7.4-10.4); PLATELET 115 x1000/uL (130-400); RED BLOOD CELL COUNT 4.66 mill/uL (4.7-6.1); RED CELL DISTRIBUTION WIDTH 15.2 % (11.6-14.6)
[2019-07-24 11:20] LABS: CHLORIDE 108 mEq/L (98-107)
[2019-07-24] MEDS ORDERED: SODIUM CHLORIDE 10% FOR INH 15ML VIAL NEB INH SCH (11:30)
[2019-07-24 13:34] LABS: PLATELET ESTIMATE DECREASED
[2019-07-24] MEDS: MEROPENEM 500 MG in SODIUM CHLORIDE 0.9% 50 ML IV SCH ×2 (15:42→21:30)
[2019-07-24] MEDS ORDERED: BUMETANIDE 1MG/4ML VIAL IV SCH (17:15)
[2019-07-24] MEDS ORDERED: RISPERIDONE 0.5MG TABLET PO SCH (21:00)
[2019-07-24] MEDS: NYSTATIN POWDER 15GM TOP SCH (21:31)
[2019-07-25] VITALS (12 sets, daily range): BP systolic 92–108; BP diastolic 52–64
[2019-07-25] MEDS: IPRATROPIUM/ALBUTEROL 0.5-3(2.5)MG/3ML NEB HHN SCH ×5 (04:34→21:07)
[2019-07-25] MEDS: MEROPENEM 500 MG in SODIUM CHLORIDE 0.9% 50 ML IV SCH ×3 (05:29→21:13)
[2019-07-25 07:04] LABS: HEMATOCRIT. 40.9 % (42.0-52.0); HEMOGLOBIN. 13.7 g/dL (14.0-18.0); MEAN CORPUSCULAR HEMOGLOBIN 31.3 pg (28.0-32.0); MEAN CORPUSCULAR VOLUME 93.1 fL (80.0-94.0); MEAN PLATELET VOLUME 9.3 fl (7.4-10.4); PLATELET 112 x1000/uL (130-400); RED BLOOD CELL COUNT 4.39 mill/uL (4.7-6.1); RED CELL DISTRIBUTION WIDTH 15.1 % (11.6-14.6)
[2019-07-25 07:09] LABS: CHLORIDE 110 mEq/L (98-107)
[2019-07-25] MEDS: METOLAZONE 2.5MG TABLET PO SCH (07:42)
[2019-07-25] MEDS: BUMETANIDE 2.5MG/10ML VIAL IV SCH ×2 (08:59→18:24)
[2019-07-25] MEDS: NYSTATIN POWDER 15GM TOP SCH ×2 (09:00→21:13)
[2019-07-25] MEDS: AMLODIPINE 5MG TABLET PO SCH (09:00)
[2019-07-25] MEDS: SACUBITRIL/VALSARTAN 49MG/51MG TABLET PO SCH ×2 (09:04→21:13)
[2019-07-25] MEDS: METHYLPREDNISOLONE SOD SUCC 40 MG/ML VIAL IV SCH (09:04)
[2019-07-25] MEDS: MEMANTINE HCL 10MG TABLET PO SCH (09:04)
[2019-07-25] MEDS: ASPIRIN 325MG TABLET PO SCH (09:04)
[2019-07-25] MEDS: POTASSIUM CHLORIDE 20MEQ TABLET SR PO SCH (09:04)
[2019-07-25] MEDS: ENOXAPARIN 40MG/0.4ML SYR SUBCUT SCH (09:06)
[2019-07-25 12:19] LABS: BG BASE EXCESS 5.8 mmol/L (-2.0-2.0); BG BILEVEL POS AIRWAY PRESSURE 15/5; BG CARBOXYHEMOGLOBIN 0.7 % (0.5-1.5); BG DEOXYHEMOGLOBIN 4.5 % (0.0-5.0); BG FRACTION INSPIRED OXYGEN 50; BG HCO3 ACT 29.7 mmol/L (22.0-26.0); BG METHEMOGLOBIN 0.2 % (0.0-1.5); BG OXYGEN SATURATION 95.5 % (92.0-98.5); BG OXYHEMOGLOBIN 94.6 % (94.0-97.0); BG PCO2 40.2 mmHg (35.0-45.0); BG PH 7.486 (7.350-7.450); BG PO2 74.3 mmHg (75.0-100.0); BG SAMPLE SITE RIGHT RADIAL; BG VENT MODE MASK - BIPAP; BG VENT RATE 16 set
[2019-07-25 14:12] LABS: PLATELET ESTIMATE DECREASED
[2019-07-25] MEDS ORDERED: DOBUTAMINE HCL IN DEXTROSE 5 % 250 ML IV SCH (15:00)
[2019-07-25] MEDS: DOBUTAMINE HCL 500 MG in DEXTROSE 5% WATER 250 ML IV SCH (15:35)
[2019-07-25] MEDS: ACETYLCYSTEINE 100MG/ML 10% VIAL 4ML INH SCH (16:37)
[2019-07-26] VITALS (13 sets, daily range): BP systolic 83–127; BP diastolic 49–65
[2019-07-26] MEDS: IPRATROPIUM/ALBUTEROL 0.5-3(2.5)MG/3ML NEB HHN SCH ×6 (00:48→21:05)
[2019-07-26] MEDS: ACETYLCYSTEINE 100MG/ML 10% VIAL 4ML INH SCH ×3 (00:48→14:00)
[2019-07-26] MEDS: MEROPENEM 500 MG in SODIUM CHLORIDE 0.9% 50 ML IV SCH ×3 (05:08→21:30)
[2019-07-26 06:44] LABS: HEMATOCRIT. 44.6 % (42.0-52.0); HEMOGLOBIN. 14.8 g/dL (14.0-18.0); MEAN CORPUSCULAR HEMOGLOBIN 31.2 pg (28.0-32.0); MEAN CORPUSCULAR VOLUME 93.9 fL (80.0-94.0); MEAN PLATELET VOLUME 9.5 fl (7.4-10.4); PLATELET 114 x1000/uL (130-400); RED BLOOD CELL COUNT 4.75 mill/uL (4.7-6.1)
[2019-07-26 09:21] LABS: PLATELET ESTIMATE DECREASED
[2019-07-26] MEDS: BUMETANIDE 2.5MG/10ML VIAL IV SCH (09:26)
[2019-07-26] MEDS: ENOXAPARIN 40MG/0.4ML SYR SUBCUT SCH (09:26)
[2019-07-26] MEDS: POTASSIUM CHLORIDE 20MEQ TABLET SR PO SCH (09:27)
[2019-07-26] MEDS: METOLAZONE 2.5MG TABLET PO SCH (09:27)
[2019-07-26] MEDS: ASPIRIN 325MG TABLET PO SCH (09:27)
[2019-07-26] MEDS: NYSTATIN POWDER 15GM TOP SCH (09:29)
[2019-07-26] MEDS: MEMANTINE HCL 10MG TABLET PO SCH (09:45)
[2019-07-26] MEDS: SACUBITRIL/VALSARTAN 49MG/51MG TABLET PO SCH (09:48)
[2019-07-26] MEDS ORDERED: POTASSIUM CHLORIDE INJ 40 MEQ in DEXT 5% WATER 250 ML IV SCH (10:00)
[2019-07-26] MEDS: DOBUTAMINE HCL 500 MG in DEXTROSE 5% WATER 250 ML IV SCH (15:00)
[2019-07-27] VITALS (12 sets, daily range): BP systolic 85–151; BP diastolic 44–73
[2019-07-27] MEDS: IPRATROPIUM/ALBUTEROL 0.5-3(2.5)MG/3ML NEB HHN SCH ×6 (00:24→20:29)
[2019-07-27] MEDS: NYSTATIN POWDER 15GM TOP SCH ×3 (00:40→20:50)
[2019-07-27] MEDS: MEROPENEM 500 MG in SODIUM CHLORIDE 0.9% 50 ML IV SCH ×3 (05:05→20:50)
[2019-07-27 08:00] LABS: HEMATOCRIT. 46.9 % (42.0-52.0); HEMOGLOBIN. 15.4 g/dL (14.0-18.0); MEAN CORPUSCULAR HEMOGLOBIN 31.1 pg (28.0-32.0); MEAN CORPUSCULAR VOLUME 94.6 fL (80.0-94.0); MEAN PLATELET VOLUME 9.7 fl (7.4-10.4); PLATELET 114 x1000/uL (130-400); RED BLOOD CELL COUNT 4.96 mill/uL (4.7-6.1); RED CELL DISTRIBUTION WIDTH 14.9 % (11.6-14.6)
[2019-07-27] MEDS: POTASSIUM CHLORIDE 20MEQ TABLET SR PO SCH (09:22)
[2019-07-27] MEDS: ASPIRIN 325MG TABLET PO SCH (09:22)
[2019-07-27] MEDS: MEMANTINE HCL 10MG TABLET PO SCH (09:22)
[2019-07-27] MEDS: ENOXAPARIN 40MG/0.4ML SYR SUBCUT SCH (09:23)
[2019-07-27] MEDS ORDERED: POTASSIUM CHLORIDE 20MEQ TABLET SR PO NR (12:30)
[2019-07-27] MEDS ORDERED: POTASSIUM CHLORIDE INJ 40 MEQ in DEXT 5% WATER 250 ML IV NR (14:00)
[2019-07-27] MEDS: DOBUTAMINE HCL 500 MG in DEXTROSE 5% WATER 250 ML IV SCH (14:21)
[2019-07-27 14:49] LABS: PLATELET ESTIMATE DECREASED
[2019-07-27] MEDS: ACETAMINOPHEN 650MG/20.3ML UDC PO PRN (16:51)
[2019-07-27] MEDS ORDERED: DEXT 5% IV ONE (20:00)
[2019-07-27] MEDS ORDERED: WATER IV ONE (20:00)
[2019-07-27] MEDS ORDERED: KCL IV ONE (20:00)
[2019-07-27] MEDS ORDERED: POTASSIUM CHLORIDE INJ 20 MEQ in DEXT 5% WATER 250 ML IV NR (20:00)
[2019-07-28] VITALS (13 sets, daily range): BP systolic 91–124; BP diastolic 52–69
[2019-07-28] MEDS: IPRATROPIUM/ALBUTEROL 0.5-3(2.5)MG/3ML NEB HHN SCH ×6 (00:48→20:21)
[2019-07-28] MEDS: MEROPENEM 500 MG in SODIUM CHLORIDE 0.9% 50 ML IV SCH ×3 (05:30→21:46)
[2019-07-28 08:07] LABS: PHOSPHORUS 3.3 mg/dL (2.5-4.9)
[2019-07-28 08:21] LABS: HEMATOCRIT. 48.2 % (42.0-52.0); HEMOGLOBIN. 15.8 g/dL (14.0-18.0); MEAN CORPUSCULAR HEMOGLOBIN 31.2 pg (28.0-32.0); MEAN CORPUSCULAR VOLUME 94.9 fL (80.0-94.0); MEAN PLATELET VOLUME 10.4 fl (7.4-10.4); PLATELET 123 x1000/uL (130-400); RED BLOOD CELL COUNT 5.08 mill/uL (4.7-6.1)
[2019-07-28] MEDS: ASPIRIN 325MG TABLET PO SCH (08:33)
[2019-07-28] MEDS: MEMANTINE HCL 10MG TABLET PO SCH (08:34)
[2019-07-28] MEDS: POTASSIUM CHLORIDE 20MEQ TABLET SR PO SCH (08:36)
[2019-07-28] MEDS: ENOXAPARIN 40MG/0.4ML SYR SUBCUT SCH (09:29)
[2019-07-28] MEDS: NYSTATIN POWDER 15GM TOP SCH ×2 (09:39→21:46)
[2019-07-28] MEDS: DEXTROSE 5% WATER 1,000 ML IV SCH ×2 (10:31→23:20)
[2019-07-28 13:11] LABS: PLATELET ESTIMATE SLIGHTLY DECREASED
[2019-07-29] VITALS (18 sets, daily range): BP systolic 87–130; BP diastolic 47–70
[2019-07-29] MEDS: IPRATROPIUM/ALBUTEROL 0.5-3(2.5)MG/3ML NEB HHN SCH ×6 (00:07→20:56)
[2019-07-29] MEDS: MEROPENEM 500 MG in SODIUM CHLORIDE 0.9% 50 ML IV SCH ×3 (05:26→21:43)
[2019-07-29 07:33] LABS: HEMATOCRIT. 47.7 % (42.0-52.0); HEMOGLOBIN. 15.8 g/dL (14.0-18.0); MEAN CORPUSCULAR HEMOGLOBIN 31.5 pg (28.0-32.0); MEAN CORPUSCULAR VOLUME 95.3 fL (80.0-94.0); MEAN PLATELET VOLUME 10.6 fl (7.4-10.4); PLATELET 109 x1000/uL (130-400); RED CELL DISTRIBUTION WIDTH 15.2 % (11.6-14.6)
[2019-07-29] MEDS: MEMANTINE HCL 10MG TABLET PO SCH (09:42)
[2019-07-29] MEDS: NYSTATIN POWDER 15GM TOP SCH ×2 (09:43→21:43)
[2019-07-29] MEDS: ENOXAPARIN 40MG/0.4ML SYR SUBCUT SCH (09:43)
[2019-07-29] MEDS: ASPIRIN 325MG TABLET PO SCH (09:44)
[2019-07-29] MEDS: DEXTROSE 5% WATER 1,000 ML IV SCH ×2 (12:07→21:55)
[2019-07-29] MEDS ORDERED: DOBUTAMINE HCL IN DEXTROSE 5 % 250 ML IV SCH (12:30)
[2019-07-29] MEDS: LACTULOSE 20G/30ML UDC PO SCH (15:35)
[2019-07-29 17:13] LABS: PLATELET ESTIMATE NORMAL
[2019-07-29] MEDS: DOCUSATE SODIUM 100MG CAPSULE PO SCH (17:30)
[2019-07-29] MEDS: FLUCONAZOLE 400MG/200ML BAG 200 ML IV SCH (17:30)
[2019-07-30] VITALS (48 sets, daily range): BP systolic 73–198; BP diastolic 31–133
[2019-07-30] MEDS: IPRATROPIUM/ALBUTEROL 0.5-3(2.5)MG/3ML NEB HHN SCH ×6 (00:54→21:26)
[2019-07-30] MEDS: MEROPENEM 500 MG in SODIUM CHLORIDE 0.9% 50 ML IV SCH ×3 (05:54→22:06)
[2019-07-30 06:04] LABS: HEMATOCRIT. 47.6 % (42.0-52.0); HEMOGLOBIN. 15.4 g/dL (14.0-18.0); MEAN CORPUSCULAR HEMOGLOBIN 30.7 pg (28.0-32.0); MEAN CORPUSCULAR VOLUME 95.2 fL (80.0-94.0); MEAN PLATELET VOLUME 10.6 fl (7.4-10.4); PLATELET 92 x1000/uL (130-400); RED CELL DISTRIBUTION WIDTH 14.9 % (11.6-14.6)
[2019-07-30 06:12] LABS: CHLORIDE 114 mEq/L (98-107)
[2019-07-30 06:17] LABS: PHOSPHORUS 3.1 mg/dL (2.5-4.9)
[2019-07-30] MEDS: LACTULOSE 20G/30ML UDC PO SCH (09:55)
[2019-07-30] MEDS: DOCUSATE SODIUM 100MG CAPSULE PO SCH ×2 (09:55→17:00)
[2019-07-30] MEDS: MEMANTINE HCL 10MG TABLET PO SCH (09:56)
[2019-07-30] MEDS: ENOXAPARIN 40MG/0.4ML SYR SUBCUT SCH (09:56)
[2019-07-30] MEDS: ASPIRIN 325MG TABLET PO SCH (09:56)
[2019-07-30] MEDS: NYSTATIN POWDER 15GM TOP SCH ×2 (09:58→22:06)
[2019-07-30] MEDS ORDERED: WATER IV SCH (13:00)
[2019-07-30] MEDS ORDERED: DEXTROSE 5% IV SCH (13:00)
[2019-07-30] MEDS ORDERED: POTASSIUM CHLORIDE IV SCH (13:00)
[2019-07-30] MEDS ORDERED: DOPAMINE 800MG PREMIX (DOUBLE) 250 ML IV SCH (13:15)
[2019-07-30] MEDS ORDERED: SODIUM CHLORIDE 0.9% 250 ML IV ONE (13:15)
[2019-07-30] MEDS ORDERED: DOPAMINE 400MG/250ML PREMIX 250 ML IV PRN (13:15)
[2019-07-30] MEDS: DEXT 5% WATER + KCL 20MEQ/L 1,000 ML IV SCH (14:29)
[2019-07-30] MEDS: DOPAMINE 400MG/250ML PREMIX 250 ML IV SCH (14:33)
[2019-07-30 16:23] LABS: PLATELET ESTIMATE DECREASED
[2019-07-30] MEDS: FLUCONAZOLE 400MG/200ML BAG 200 ML IV SCH (22:06)
[2019-07-31] VITALS (140 sets, daily range): BP systolic 64–153; BP diastolic 23–94
[2019-07-31] MEDS: IPRATROPIUM/ALBUTEROL 0.5-3(2.5)MG/3ML NEB HHN SCH ×7 (00:27→23:53)
[2019-07-31] MEDS: ACETYLCYSTEINE 100MG/ML 10% VIAL 4ML INH SCH ×4 (00:27→23:52)
[2019-07-31] MEDS: DOPAMINE 400MG/250ML PREMIX 250 ML IV SCH ×3 (01:52→21:46)
[2019-07-31 05:21] LABS: HEMATOCRIT. 48.5 % (42.0-52.0); HEMOGLOBIN. 15.8 g/dL (14.0-18.0); MEAN CORPUSCULAR VOLUME 95.5 fL (80.0-94.0); MEAN PLATELET VOLUME 11.1 fl (7.4-10.4); PLATELET 98 x1000/uL (130-400); RED BLOOD CELL COUNT 5.08 mill/uL (4.7-6.1); RED CELL DISTRIBUTION WIDTH 14.7 % (11.6-14.6)
[2019-07-31] MEDS: MEROPENEM 500 MG in SODIUM CHLORIDE 0.9% 50 ML IV SCH ×3 (06:20→21:05)
[2019-07-31] MEDS: ASPIRIN 325MG TABLET PO SCH (08:32)
[2019-07-31] MEDS: NYSTATIN POWDER 15GM TOP SCH ×2 (08:33→20:38)
[2019-07-31] MEDS: DOCUSATE SODIUM 250MG CAPSULE PO SCH ×2 (08:33→17:00)
[2019-07-31] MEDS: LACTULOSE 20G/30ML UDC PO SCH (08:33)
[2019-07-31] MEDS: MEMANTINE HCL 10MG TABLET PO SCH (08:33)
[2019-07-31 08:39] LABS: NUCLEATED RED BLOOD CELLS 1 /100 WBC
[2019-07-31 08:40] LABS: PLATELET ESTIMATE DECREASED
[2019-07-31] MEDS ORDERED: LIDOCAINE HCL 1% 20ML VIAL (Pyxis) INJ ONE (09:12)
[2019-07-31 09:46] LABS: BG BASE EXCESS 3.7 mmol/L (-2.0-2.0); BG BILEVEL POS AIRWAY PRESSURE 15/5; BG CARBOXYHEMOGLOBIN 0.1 % (0.5-1.5); BG DEOXYHEMOGLOBIN 2.2 % (0.0-5.0); BG FRACTION INSPIRED OXYGEN 40; BG HCO3 ACT 28.1 mmol/L (22.0-26.0); BG METHEMOGLOBIN 0.3 % (0.0-1.5); BG OXYGEN SATURATION 97.8 % (92.0-98.5); BG OXYHEMOGLOBIN 97.4 % (94.0-97.0); BG PCO2 41.8 mmHg (35.0-45.0); BG PH 7.446 (7.350-7.450); BG SAMPLE SITE LEFT RADIAL; BG TOTAL HEMOGLOBIN 16.9 g/dL (12.0-18.0); BG VENT MODE MASK - BIPAP; BG VENT RATE 16 set
[2019-07-31] MEDS: FLUCONAZOLE 400MG/200ML BAG 200 ML IV SCH (17:15)
[2019-07-31] MEDS: DEXT 5% WATER + KCL 20MEQ/L 1,000 ML IV SCH (20:38)
[2019-07-31] MEDS ORDERED: NOREPINEPHRINE 16 MG in DEXT 5% WATER 234 ML IV PRN (22:15)
[2019-08-01] VITALS (87 sets, daily range): BP systolic 69–120; BP diastolic 41–81
[2019-08-01] MEDS: DOPAMINE 400MG/250ML PREMIX 250 ML IV SCH ×4 (02:34→18:21)
[2019-08-01] MEDS: IPRATROPIUM/ALBUTEROL 0.5-3(2.5)MG/3ML NEB HHN SCH ×5 (04:04→21:27)
[2019-08-01 05:23] LABS: HEMATOCRIT. 49.2 % (42.0-52.0); HEMOGLOBIN. 16.3 g/dL (14.0-18.0); MEAN CORPUSCULAR HEMOGLOBIN 31.3 pg (28.0-32.0); MEAN CORPUSCULAR VOLUME 94.4 fL (80.0-94.0); MEAN PLATELET VOLUME 11.2 fl (7.4-10.4); PLATELET 107 x1000/uL (130-400); RED BLOOD CELL COUNT 5.21 mill/uL (4.7-6.1); RED CELL DISTRIBUTION WIDTH 14.8 % (11.6-14.6)
[2019-08-01 05:25] LABS: CHLORIDE 111 mEq/L (98-107)
[2019-08-01 05:37] LABS: PHOSPHORUS 4.2 mg/dL (2.5-4.9)
[2019-08-01] MEDS: DEXT 5% WATER + KCL 20MEQ/L 1,000 ML IV SCH ×2 (06:21→18:14)
[2019-08-01 06:27] LABS: PLATELET ESTIMATE DECREASED
[2019-08-01] MEDS: ACETYLCYSTEINE 100MG/ML 10% VIAL 4ML INH SCH ×2 (08:02→15:45)
[2019-08-01] MEDS: LACTULOSE 20G/30ML UDC PO SCH ×2 (09:37→09:56)
[2019-08-01] MEDS: MEMANTINE HCL 10MG TABLET PO SCH (09:37)
[2019-08-01] MEDS: NYSTATIN POWDER 15GM TOP SCH ×2 (09:37→21:21)
[2019-08-01] MEDS: ASPIRIN 325MG TABLET PO SCH (09:37)
[2019-08-01] MEDS ORDERED: DOCUSATE SODIUM SUGAR FREE 100MG/10ML UDC NG NR (09:45)
[2019-08-01 10:35] LABS: BG BASE EXCESS 4.2 mmol/L (-2.0-2.0); BG CARBOXYHEMOGLOBIN 0.7 % (0.5-1.5); BG DEOXYHEMOGLOBIN 2.7 % (0.0-5.0); BG FRACTION INSPIRED OXYGEN 28; BG HCO3 ACT 27.9 mmol/L (22.0-26.0); BG METHEMOGLOBIN 0.3 % (0.0-1.5); BG OXYGEN SATURATION 97.3 % (92.0-98.5); BG OXYHEMOGLOBIN 96.3 % (94.0-97.0); BG PCO2 38.7 mmHg (35.0-45.0); BG PH 7.476 (7.350-7.450); BG PO2 91.4 mmHg (75.0-100.0); BG SAMPLE SITE RIGHT RADIAL; BG TOTAL HEMOGLOBIN 15.7 g/dL (12.0-18.0); BG VENT MODE NASAL CANNULA
[2019-08-01] MEDS: DOCUSATE SODIUM SUGAR FREE 100MG/10ML UDC NG SCH (18:13)
[2019-08-01] MEDS: FLUCONAZOLE 400MG/200ML BAG 200 ML IV SCH (18:13)
[2019-08-01] MEDS: DOPAMINE 800MG PREMIX (DOUBLE) 250 ML IV PRN (23:24)
[2019-08-02] VITALS (97 sets, daily range): BP systolic 75–119; BP diastolic 27–88
[2019-08-02] MEDS: DEXT 5% WATER + KCL 20MEQ/L 1,000 ML IV SCH ×3 (00:30→20:12)
[2019-08-02] MEDS: IPRATROPIUM/ALBUTEROL 0.5-3(2.5)MG/3ML NEB HHN SCH ×7 (00:36→23:52)
[2019-08-02] MEDS: ACETYLCYSTEINE 100MG/ML 10% VIAL 4ML INH SCH (00:36)
[2019-08-02 06:12] LABS: HEMATOCRIT. 44.4 % (42.0-52.0); HEMOGLOBIN. 14.9 g/dL (14.0-18.0); MEAN CORPUSCULAR HEMOGLOBIN 31.3 pg (28.0-32.0); MEAN CORPUSCULAR VOLUME 92.8 fL (80.0-94.0); MEAN PLATELET VOLUME 10.6 fl (7.4-10.4); PLATELET 90 x1000/uL (130-400); RED BLOOD CELL COUNT 4.78 mill/uL (4.7-6.1); RED CELL DISTRIBUTION WIDTH 14.6 % (11.6-14.6)
[2019-08-02 06:17] LABS: CHLORIDE 111 mEq/L (98-107)
[2019-08-02 06:26] LABS: PHOSPHORUS 2.4 mg/dL (2.5-4.9)
[2019-08-02] MEDS: DOPAMINE 800MG PREMIX (DOUBLE) 250 ML IV PRN ×2 (07:16→16:15)
[2019-08-02 08:22] LABS: PLATELET ESTIMATE SLIGHTLY DECREASED
[2019-08-02] MEDS: MEMANTINE HCL 10MG TABLET PO SCH (08:52)
[2019-08-02] MEDS: ASPIRIN 325MG TABLET PO SCH (08:52)
[2019-08-02] MEDS: DOCUSATE SODIUM SUGAR FREE 100MG/10ML UDC NG SCH ×2 (08:59→16:14)
[2019-08-02] MEDS: NYSTATIN POWDER 15GM TOP SCH ×2 (08:59→20:10)
[2019-08-02] MEDS ORDERED: POTASSIUM PHOS,M-BASIC-D-BASIC 20 MMOL in DEXT 5% WATER 243.3333 ML IV SCH (10:30)
[2019-08-02] MEDS: LACTULOSE 20G/30ML UDC PO SCH (10:56)
[2019-08-02] MEDS: FLUCONAZOLE 400MG/200ML BAG 200 ML IV SCH (16:14)
[2019-08-02] MEDS ORDERED: GUAIFENESIN 200MG/10ML SUGAR FREE UDC PO PRN (16:15)
[2019-08-02] MEDS: ACETAMINOPHEN 650MG/20.3ML UDC PO PRN ×2 (17:06→22:25)
[2019-08-03] VITALS (77 sets, daily range): BP systolic 69–138; BP diastolic 15–61
[2019-08-03] MEDS: DOPAMINE 800MG PREMIX (DOUBLE) 250 ML IV PRN ×4 (00:30→16:40)
[2019-08-03] MEDS: IPRATROPIUM/ALBUTEROL 0.5-3(2.5)MG/3ML NEB HHN SCH ×4 (04:13→16:43)
[2019-08-03 05:35] LABS: HEMATOCRIT. 48.2 % (42.0-52.0); HEMOGLOBIN. 15.9 g/dL (14.0-18.0); MEAN CORPUSCULAR HEMOGLOBIN 31.2 pg (28.0-32.0); MEAN CORPUSCULAR VOLUME 94.3 fL (80.0-94.0); MEAN PLATELET VOLUME 10.7 fl (7.4-10.4); PLATELET 92 x1000/uL (130-400); RED BLOOD CELL COUNT 5.11 mill/uL (4.7-6.1); RED CELL DISTRIBUTION WIDTH 14.4 % (11.6-14.6)
[2019-08-03 05:48] LABS: PHOSPHORUS 3.1 mg/dL (2.5-4.9)
[2019-08-03 05:54] LABS: CLARITY URINE TURBID (CLEAR); COLOR URINE DARK YELLOW (YELLOW); KETONES URINE TRACE (NEGATIVE); LEUKOCYTE ESTERASE URINE TRACE (NEGATIVE); NITRITE URINE NEGATIVE (NEGATIVE); OCCULT BLOOD URINE 3+ (NEGATIVE); PROTEIN URINE 2+ (NEGATIVE)
[2019-08-03] MEDS: ACETAMINOPHEN 650MG/20.3ML UDC PO PRN ×2 (06:28→12:46)
[2019-08-03 07:35] LABS: BG BASE EXCESS -0.5 mmol/L (-2.0-2.0); BG CARBOXYHEMOGLOBIN 0.4 % (0.5-1.5); BG DEOXYHEMOGLOBIN 2.2 % (0.0-5.0); BG HCO3 ACT 21.6 mmol/L (22.0-26.0); BG METHEMOGLOBIN 0.3 % (0.0-1.5); BG OXYGEN SATURATION 97.8 % (92.0-98.5); BG OXYHEMOGLOBIN 97.1 % (94.0-97.0); BG PCO2 29.2 mmHg (35.0-45.0); BG PH 7.487 (7.350-7.450); BG PO2 97.7 mmHg (75.0-100.0); BG SAMPLE SITE RIGHT BRACHIAL; BG TOTAL HEMOGLOBIN 15.3 g/dL (12.0-18.0); BG VENT MODE MASK - BIPAP; BG VENT RATE 16 set
[2019-08-03] MEDS: MEMANTINE HCL 10MG TABLET PO SCH (08:12)
[2019-08-03] MEDS: DOCUSATE SODIUM SUGAR FREE 100MG/10ML UDC NG SCH ×2 (08:12→16:52)
[2019-08-03] MEDS: LACTULOSE 20G/30ML UDC PO SCH (08:12)
[2019-08-03] MEDS: ASPIRIN 325MG TABLET PO SCH (08:13)
[2019-08-03] MEDS: NYSTATIN POWDER 15GM TOP SCH (08:23)
[2019-08-03 09:35] LABS: PLATELET ESTIMATE DECREASED
[2019-08-03] MEDS: FLUCONAZOLE 400MG/200ML BAG 200 ML IV SCH (16:52)
[2019-08-03] MEDS ORDERED: POTASSIUM CHLORIDE INJ 20 MEQ in DEXTROSE 5% WATER 1,000 ML IV SCH (18:00)
== END 2019-08-03 18:07 | disposition expired | DRG 720 ==
LOC: ER 14:03 → 8WST 16:35 → ENRESERV 16:54 → 8WST 17:44 → 5EST 07-24 03:53 → MICUNO 07-30 18:30
PROVIDERS: ADMIT Internal Medicine; ATTEND Internal Medicine
PROC: 4A00X4Z Measurement of Central Nervous Electrical Activity, External Approach (ICD-10-PCS; principal; 2019-07-20)
PROC: 5A09357 Assistance with Respiratory Ventilation, Less than 24 Consecutive Hours, Continuous Positive Airway Pressure (ICD-10-PCS; 2019-07-25)
PROC: 5A09357 Assistance with Respiratory Ventilation, Less than 24 Consecutive Hours, Continuous Positive Airway Pressure (ICD-10-PCS; 2019-07-27)
PROC: 5A09357 Assistance with Respiratory Ventilation, Less than 24 Consecutive Hours, Continuous Positive Airway Pressure (ICD-10-PCS; 2019-07-28)
PROC: 5A09457 Assistance with Respiratory Ventilation, 24-96 Consecutive Hours, Continuous Positive Airway Pressure (ICD-10-PCS; 2019-07-30)
PROC: 02HV33Z Insertion of Infusion Device into Superior Vena Cava, Percutaneous Approach (ICD-10-PCS; 2019-07-31)
PROC: B548ZZA Ultrasonography of Superior Vena Cava, Guidance (ICD-10-PCS; 2019-07-31)
PROC: 5A09357 Assistance with Respiratory Ventilation, Less than 24 Consecutive Hours, Continuous Positive Airway Pressure (ICD-10-PCS; 2019-07-31)
PROC: 5A09357 Assistance with Respiratory Ventilation, Less than 24 Consecutive Hours, Continuous Positive Airway Pressure (ICD-10-PCS; 2019-08-02)
PROC: 5A09457 Assistance with Respiratory Ventilation, 24-96 Consecutive Hours, Continuous Positive Airway Pressure (ICD-10-PCS; 2019-08-02)
PROC: 5A12012 Performance of Cardiac Output, Single, Manual (ICD-10-PCS; 2019-08-03)
PROC: 0BH17EZ Insertion of Endotracheal Airway into Trachea, Via Natural or Artificial Opening (ICD-10-PCS; 2019-08-03)
PROC: 5A1935Z Respiratory Ventilation, Less than 24 Consecutive Hours (ICD-10-PCS; 2019-08-03)
DX: A41.9 Sepsis, unspecified organism (principal); J96.00 Acute respiratory failure, unspecified whether with hypoxia or hypercapnia; N17.0 Acute kidney failure with tubular necrosis; J69.0 Pneumonitis due to inhalation of food and vomit; E87.2 Acidosis; I50.43 Acute on chronic combined systolic (congestive) and diastolic (congestive) heart failure; G92 Toxic encephalopathy; E87.4 Mixed disorder of acid-base balance; E44.0 Moderate protein-calorie malnutrition; E87.0 Hyperosmolality and hypernatremia; D69.6 Thrombocytopenia, unspecified; I46.9 Cardiac arrest, cause unspecified; G20 Parkinson's disease; I11.0 Hypertensive heart disease with heart failure; I42.0 Dilated cardiomyopathy; F02.80 Dementia in other diseases classified elsewhere, unspecified severity, without behavioral disturbance, psychotic disturbance, mood disturbance, and anxiety; I25.5 Ischemic cardiomyopathy; J44.0 Chronic obstructive pulmonary disease with (acute) lower respiratory infection; N39.0 Urinary tract infection, site not specified; N40.0 Benign prostatic hyperplasia without lower urinary tract symptoms; Z86.73 Personal history of transient ischemic attack (TIA), and cerebral infarction without residual deficits; Z95.2 Presence of prosthetic heart valve; Z90.49 Acquired absence of other specified parts of digestive tract; Z95.810 Presence of automatic (implantable) cardiac defibrillator; Z96.659 Presence of unspecified artificial knee joint; E87.6 Hypokalemia; J44.9 Chronic obstructive pulmonary disease, unspecified; R31.0 Gross hematuria; G25.0 Essential tremor; I08.0 Rheumatic disorders of both mitral and aortic valves; K59.00 Constipation, unspecified; Z79.899 Other long term (current) drug therapy; Z82.49 Family history of ischemic heart disease and other diseases of the circulatory system; R26.9 Unspecified abnormalities of gait and mobility
CPT/HCPCS: 36415; 36600; 71045; 71250; 76770; 76937; 78580; 80048; 80162; 80202; 81003; 82140; 82375; 82390; 82607; 82746; 82805; 82962; 83036; 83605; 83735; 83880; 84100; 84134; 84145; 84439; 84443; 84481; 84484; 85379; 87070; 87106; 87804; 92610; 92950; 93005; 93306; 93970; 94003; 94640; 94660; 97162; 97166; 99291; A6261; C1725; C1893; J0692; J1250; J1265; J1450; J1630; J1650; J1940; J1956; J2060; J2185; J2543; J2920; J3370; J3480; J3490; J7030; J7040; J7060; J7070; J7131; J7608; J7620; A4315